=== PATIENT | male | born 1975 | race African-American/Black ===

== ENCOUNTER → 2021-12-30 | Outpatient (CLI) | payer OTHER | LOC: MHCPAIN 08:29 | DX: M53.3 Sacrococcygeal disorders, not elsewhere classified (principal); M47.816 Spondylosis without myelopathy or radiculopathy, lumbar region; M54.16 Radiculopathy, lumbar region; G89.29 Other chronic pain | CPT/HCPCS: G0463 ==

== ENCOUNTER → 2022-01-01 | Outpatient (CLI) | payer OTHER | LOC: COL.RAD 10:26 | DX: R55 Syncope and collapse (principal) ==